=== PATIENT | male | born 1975 | race Caucasian/White ===

== ENCOUNTER 2021-04-07 14:00 | Emergency (ER) | payer OTHER ==
[2021-04-07 16:04] LABS: BASOPHIL 0.4 % (0-2); EOSINOPHIL 0 % (0-5); HCT 45.6 % (42.0-52.0); HGB 15.5 g/dl (13.2-18.0); LYMPHOCYTE 17.6 % (15-48); MCH 30.6 pg (25.0-31.0); MCV 90.1 fL (78.0-100.0); MONOCYTE 9.5 % (0-12); MPV 10.1 fL (6.0-9.5); NEUTROPHIL 72.1 % (41-80); NRBC 0; PLT 146 K/uL (150-400); RBC 5.06 M/uL (4.70-6.00); RDW 12.6 % (11.5-14.0); WBC 4.8 K/uL (4.0-10.5)
[2021-04-07 16:23] LABS: ALBUMIN 3.9 g/dL (3.4-5.0); BILIRUBIN - TOTAL 0.6 mg/dL (0.2-1.0); CREATININE 1.11 mg/dL (0.67-1.17); GLOBULIN (CALCULATION) 3.8 g/dL; POTASSIUM 4.3 mmol/L (3.5-5.1); TOTAL PROTEIN 7.7 g/dL (6.4-8.2)
[2021-04-07] MEDS ORDERED: BENZONATATE200 MG PO (19:04)
[2021-04-07] MEDS ORDERED: ONDANSETRON ODT4 MG PO (19:04)
[2021-04-07] MEDS ORDERED: PROAIR HFA8.5 GM INH (19:04)
[2021-04-07 20:03] LABS: BILIRUBIN NEGATIVE (NEGATIVE); BLOOD NEGATIVE Ery/uL (NEGATIVE); CLARITY CLEAR (CLEAR); COLOR YELLOW (YELLOW); GLUCOSE (U) NORMAL (NORMAL); LEUKOCYTES NEGATIVE Leu/uL (NEGATIVE); NITRITE NEGATIVE (NEGATIVE); PROTEIN NEGATIVE (NEGATIVE); SPECIFIC GRAVITY <=1.005 (1.001-1.030); UROBILINOGEN 0.2 mg/dL (0.2-1.0); pH 6.5 (5.0-9.0)
[2021-04-07 20:11] LABS: SQUAMOUS EPITHELIAL CELLS RARE
== END 2021-04-07 19:57 | disposition home or self-care (01) ==
LOC: FER 14:00
PROVIDERS: Physician Assistant
DX: J18.9 Pneumonia, unspecified organism (principal); I10 Essential (primary) hypertension; M10.9 Gout, unspecified; Z86.16 Personal history of COVID-19; Z88.0 Allergy status to penicillin; Z88.1 Allergy status to other antibiotic agents; Z79.899 Other long term (current) drug therapy
CPT/HCPCS: 36415; 71045; 71275; 80053; 81001; 84484; 85025; 85379; 93005; J2405; J7040; M0243; Q0244; Q9967